=== PATIENT | male | born 1970 | race Caucasian/White ===

== ENCOUNTER 2017-04-22 13:27 | Emergency (ER) | payer MEDICAID ==
[~2017-04-22] VITALS: Ht 165.1 cm; Wt 74.4 kg
[~2017-04-22 13:27] MED LIST: APAP/HYDROCODON1 T13 PO; COL100 PO; METFORMIN ER500 M1 PO
[2017-04-22 17:07] VITALS: BP 131/76
== END 2017-04-22 20:05 | disposition home or self-care (01) ==
LOC: ED 13:27
DX: S16.1XXA Strain of muscle, fascia and tendon at neck level, initial encounter (principal); W17.89XA Other fall from one level to another, initial encounter; Y93.89 Activity, other specified; Y99.8 Other external cause status; Y92.89 Other specified places as the place of occurrence of the external cause
CPT/HCPCS: J1885

== ENCOUNTER 2017-08-19 21:11 | Emergency (ER) | payer SELFPAY ==
[~2017-08-19] VITALS: Ht 165.1 cm; Wt 73.5 kg
[2017-08-19 23:51] LABS: BASOPHIL % 0.5 % (0-2); PLATELET COUNT 289 x10^3mcL (130-400); RED CELL DISTRIBUTION WIDTH 12.7 % (11.5-14.5)
[2017-08-19 23:57] LABS: ALBUMIN 3.5 g/dL (3.4-5.0); ALKALINE PHOSPHATASE 92 U/L (46-116); ALT/SGPT 62 U/L (16-63); AST/SGOT 27 U/L (15-37); BILIRUBIN TOTAL 0.4 mg/dL (0.20-1.00); CALCIUM 8.9 mg/dL (8.5-10.1); CARBON DIOXIDE 28.9 mmol/L (21-32); CHLORIDE SERUM 103 mmol/L (98-107); CREATININE SERUM 0.8 mg/dL (0.7-1.3); GFR1 > 60 mL/min; GLUCOSE SERUM 114 mg/dL (74-106); LIPASE 89 IU/L (73-393); POTASSIUM SERUM 3.9 mmol/L (3.5-5.1); SODIUM SERUM 140 mmol/L (136-145); TOTAL PROTEIN, SERUM 7.3 g/dL (6.4-8.2)
[2017-08-20 04:19] VITALS: BP 106/52
== END 2017-08-20 03:50 | disposition home or self-care (01) ==
LOC: ED 21:11
PROVIDERS: Emergency Medicine
DX: K57.32 Diverticulitis of large intestine without perforation or abscess without bleeding (principal)
CPT/HCPCS: J2405; J3010; J7030; Q9967

== ENCOUNTER 2018-11-18 19:36 | Emergency (ER) | payer BC ==
[~2018-11-18] VITALS: Ht 165.1 cm; Wt 76.7 kg
[2018-11-18 19:43] VITALS: Ht 165.1 cm; Wt 76.7 kg
[2018-11-18 23:30] VITALS: BP 144/83
== END 2018-11-18 23:30 | disposition home or self-care (01) ==
LOC: ED 19:36
DX: S16.1XXA Strain of muscle, fascia and tendon at neck level, initial encounter (principal); Z90.89 Acquired absence of other organs; V49.49XA Driver injured in collision with other motor vehicles in traffic accident, initial encounter; W22.10XA Striking against or struck by unspecified automobile airbag, initial encounter; Y93.I9 Activity, other involving external motion; Y92.413 State road as the place of occurrence of the external cause; Y99.8 Other external cause status
CPT/HCPCS: J1885

== ENCOUNTER 2019-02-17 20:44 | Emergency (ER) | payer BC ==
[~2019-02-17] VITALS: Ht 165.1 cm; Wt 76.8 kg
[2019-02-17 20:59] VITALS: Ht 165.1 cm; Wt 76.8 kg
[2019-02-18 00:29] VITALS: BP 132/87
== END 2019-02-18 00:29 | disposition home or self-care (01) ==
LOC: ED 20:44
DX: N34.2 Other urethritis (principal); E78.00 Pure hypercholesterolemia, unspecified; Z90.89 Acquired absence of other organs
CPT/HCPCS: 87491; 87591

== ENCOUNTER 2019-05-17 22:53 | Emergency (ER) | payer BC ==
[~2019-05-17] VITALS: Ht 165.1 cm; Wt 77.6 kg
[2019-05-17 22:58] VITALS: Ht 165.1 cm; Wt 77.6 kg
[2019-05-18 00:47] VITALS: BP 132/80
== END 2019-05-18 00:47 | disposition home or self-care (01) ==
LOC: ED 22:53
DX: N48.89 Other specified disorders of penis (principal); Z90.89 Acquired absence of other organs

== ENCOUNTER 2019-11-09 22:01 | Emergency (ER) | payer BC ==
[~2019-11-09] VITALS: Ht 165.1 cm; Wt 78.1 kg
[2019-11-09 22:36] VITALS: Ht 165.1 cm; Wt 78.1 kg
[2019-11-10 03:07] VITALS: BP 138/79
== END 2019-11-10 03:07 | disposition home or self-care (01) ==
LOC: ED 22:01
DX: Z89.012 Acquired absence of left thumb (principal); E78.00 Pure hypercholesterolemia, unspecified; Z90.49 Acquired absence of other specified parts of digestive tract; W26.8XXA Contact with other sharp object(s), not elsewhere classified, initial encounter; Y93.89 Activity, other specified; Y92.89 Other specified places as the place of occurrence of the external cause; Y99.8 Other external cause status
CPT/HCPCS: 90715; Q0092

== ENCOUNTER 2020-03-12 19:13 | Emergency (ER) | payer BC ==
[2020-03-12 19:29] VITALS: Ht 167.6 cm
[2020-03-12 20:15] VITALS: BP 123/94
== END 2020-03-12 20:15 | disposition home or self-care (01) ==
LOC: ED 19:13
DX: S01.21XA Laceration without foreign body of nose, initial encounter (principal); Z90.89 Acquired absence of other organs; Z90.49 Acquired absence of other specified parts of digestive tract; W18.30XA Fall on same level, unspecified, initial encounter; Y93.89 Activity, other specified; Y92.89 Other specified places as the place of occurrence of the external cause; Y99.8 Other external cause status